=== PATIENT | female | born 1990 | race Caucasian/White ===

== ENCOUNTER 2022-09-19 10:22 | Emergency (ER) | payer SELFPAY ==
[2022-09-19 10:42] VITALS: BP 119/85; PULSE 85; RESP 18; TEMP 36.5; O2SAT 98
--- NOTE | 2022-09-19 11:31 | W.ED.FEVER ---
HPI - Fever General: Chief Complaint: Fever Stated Complaint: Covid Positive Time Seen by Provider: 09/19/22 10:50 History of Present Illness: Patient is in for approximately 1 week off-and-on fever, nasal congestion and drainage, cough, headache, fatigue. She does report that she had a roommate that just tested positive for COVID 2 days ago. She has a 19-year-old male with her today with similar symptoms and also her son who has similar symptoms. She reports that she has been having to use her albuterol inhaler more frequently and she is almost out of that medication. Associated symptoms: Reports chills, headache(s) and nasal congestion; Deny abdominal pain, flank pain, chest pain, dysuria, nausea or vomiting Review of Systems Const: Reports: fever(s), chills, body aches and fatigue ENMT: Reports: nasal discharge, nasal congestion and post nasal drip Card: Denies: chest pain or palpitations Resp: Reports: non-productive cough and wheezing; Denies: dyspnea GI: Denies: abdominal pain, nausea or vomiting : Denies: flank pain, difficulty voiding, dysuria or urinary frequency Neuro: Reports: headache(s); Denies: numbness in extremities, weakness in extremities, sensory changes or lack of coordination Physical Exam Const: COMMON NORMALS: no acute distress, patient oriented x3 and alert HENMT: COMMON NORMALS: TM's normal bilaterally NOSE: Nasal discharge present clear TYMPANIC MEMBRANE: TM's normal bilaterally THROAT: uvula midline and postnasal drainage Neck/C-Spine: COMMON NORMALS: no JVD Resp: COMMON NORMALS: normal respiratory effort, No use of accessory muscles and clear to auscultation bilaterally AUSCULTATION: clear to auscultation bilaterally Cardio: COMMON NORMALS: no JVD, regular rate, regular rhythm, S1 normal heart sound present, S2 normal heart sound present and No murmurs present (Cardio) RATE: regular rate RHYTHM: regular rhythm HEART SOUNDS: S1 normal heart sound present and S2 normal heart sound present Neuro: COMMON NORMALS: patient oriented x3, CN's II-XII intact bilaterally and moves all extremities SENSORIUM/ORIENTATION: Yes alert Course Vital Signs: Vital signs: Vital Signs Temperature 97.7 F 09/19/22 10:42 Pulse Rate 85 09/19/22 10:42 Respiratory Rate 18 09/19/22 10:42 Blood Pressure 119/85 09/19/22 10:42 Pulse Oximetry 98 09/19/22 10:42 MDM - Fever Medical Decision Making Patient is in today for upper respiratory symptoms with recent exposure to COVID-19. 2 other people are in with her today with similar symptoms living in her household. Patient is mildly ill-appearing however nontoxic. Respiratory status is nonlabored. SPO2 is 98% on room air. Will refill patient's albuterol inhaler as well as her nebulizer solution. Send her home with conservative care rest, fluids, Tylenol, Motrin as needed for pain and fever. Offered COVID-19 PCR swab and she declines at this time. Follow-up with primary care provider as needed. Return to the ER for new or worsening symptoms. Advised patient I would go ahead and quarantine for 5 days from the onset of symptoms given the likelihood of COVID-19. He has already been sick for 5 days but she is still having fever. She can return to work when she is improving on her symptoms and fever free for 24 hours without medication. Discharge Plan Discharge Patient Disposition: Home Clinical Impression: Acute upper respiratory infection, Close exposure to 2019 novel coronavirus Condition: Stable Prescriptions: New albuterol sulfate 90 mcg/actuation aerosol powdr breath activated 2 inh inhalation Q4H PRN (Reason: shortness of breath or wheezing) Qty: 1 0RF albuterol sulfate 2.5 mg /3 mL (0.083 %) solution for nebulization 2.5 mg inhalation Q6H PRN (Reason: shortness of breath or wheezing) Qty: 75 0RF Discharge Orders: Discharge ED (Routine); Ordered 09/19/22 Ordered By: Marcie Cuellar Discharge Diet: Usual diet Discharge Activity: Increase activity as tolerated Patient Instructions: COVID-19 (Coronavirus Disease 2019) (ED), Upper Respiratory Infection - Adult Activity Restrictions/Additional Instructions: I recommend conservative treatment at home. Use the albuterol nebulized treatment every 6 hours as needed for wheezing or shortness of breath. You can use rescue inhaler if you are out and away from your albuterol nebulized treatments. Make sure that you are staying plenty hydrated. Use Tylenol and Motrin as needed for pain and fever. Follow-up with primary care provider as needed. Return to ER for new or worsening symptoms Coding Level of Care Code ED Adult Family Home Program Manager for Chg Fwd Exam Detailed
== END 2022-09-19 12:55 | disposition home or self-care (01) ==
PROVIDERS: Emergency Provider Nurse Practitioner Family
DX: J06.9 Acute upper respiratory infection, unspecified (principal); Z20.822 Contact with and (suspected) exposure to COVID-19
CPT/HCPCS: 99283